=== PATIENT | male | born 1975 | race Two or more races ===

== ENCOUNTER 2019-11-07 15:33 | Emergency (ER) | payer BC ==
[~2019-11-07] VITALS: Ht 170.2 cm; Wt 81.8 kg
[2019-11-07 16:00] VITALS: BP 141/84
[2019-11-07] MEDS ORDERED: LIDOCAINE 1% PF 2 ML VIAL. INJ ONE (16:15)
[2019-11-07] MEDS ORDERED: DIPH,PERTUSS(ACELL),TET VAC/PF 0.5 ML SYRINGE. VAX IM ONE (16:15)
--- NOTE | 2019-11-07 16:21 | PHYS DOC ---
Past Medical History Past Medical History: No Pertinent History Past Surgical History: No Surgical History Smoking Status: Current Every Day Smoker Alcohol Use: None General Adult EDM: Chief Complaint: LACERATION/AVULSION HPI: HPI: Patient is a 44 year old male, accompanied by his significant other who is translating for him, that resents with an avulsion/laceration to distal left third finger. Patient reports that he was cutting some wood today when he cut the tip of his left third finger with the saw. He denies any decreased sensation, or movement to the affected extremity. Patient is dominantly right- handed. He currently rates his pain 9 out of 10. There is no radiation of pain, nothing makes pain better or worse. Patient is unsure when his last tetanus shot was. Review of Systems: Review of Systems: Complete review of systems is negative unless otherwise documented in the HPI Heart Score: Risk Factors: Risk Factors: DM, Current or recent (<one month) smoker, HTN, HLP, family history of CAD, obesity. Risk Scores: Score 0 - 3: 2.5% MACE over next 6 weeks - Discharge Home Score 4 - 6: 20.3% MACE over next 6 weeks - Admit for Clinical Observation Score 7 - 10: 72.7% MACE over next 6 weeks - Early Invasive Strategies Allergies: Allergies: Allergies Coded Allergies Type Severity Reaction Last Updated Verified No Known Drug Allergies 11/07/19 No Physical Exam: PE: Constitutional: Well developed, well nourished, no acute distress, non-toxic appearance. [] HENT: Normocephalic, atraumatic, bilateral external ears normal, nose normal. [] Eyes: PERRLA, EOMI, conjunctiva normal, no discharge. [] Neck: Normal range of motion, no stridor. [] Cardiovascular:Heart rate regular rhythm, no murmur [] Lungs & Thorax: Respirations even and unlabored, no retractions, no respiratory distress] Skin: Warm, dry, no erythema, no rash; patient has avulsion/laceration to tip of left third finger, no visible foreign body, no active bleeding Extremities: L index finger: no cyanosis, no clubbing, no edema, PMS intact, cap refill less than 2 seconds Neurologic: Alert and oriented X 3, normal motor function, normal sensory function, no focal deficits noted. [] Psychologic: Affect normal, judgement normal, mood normal. [] Current Patient Data: Labs: Complete ROS is negative unless otherwise noted in HPI. Vital Signs: Vital Signs Date Time Temp Pulse Resp B/P (MAP) Pulse Ox O2 Delivery O2 Flow Rate FiO2 11/07/19 16:00 98.1 76 16 141/84 (103) 98 Room Air 98.1 EKG: EKG: [] Radiology/Procedures: Radiology/Procedures: PROCEDURE: FINGER(S) LEFT Left third finger x-rays 3 views HISTORY: Left middle finger laceration with a subtle. FINDINGS: Second MCP joint demonstrates a small particular soft tissue density may be a chronic foreign body. There is a laceration soft tissue defect at the tip of the distal third finger and a small cortical fracture defect of the third distal phalangeal tuft, no radiopaque foreign body at the third finger laceration. No dislocation. IMPRESSION: Laceration of the third distal finger and acute traumatic mild cortical impaction fracture of the third distal phalangeal tuft. See above. Laceration Repair by me: Anesthesia: 1% lidocaine locally Location: Distal left middle finger Tendon/Joint/Nerves: No injury Foreign body: None detected after copious irrigation and exploration with NS and chlorhexidine Technique: 3 Simple Interrupted Sutures with 4-0 Ethilon Complexity: No subcutaneous sutures/mucosal repair/edge excision Post Closure Length: 1.5 cm Patient's bleeding was easily controlled in the department and there is no indic ation of anemia. No evidence of compartment syndrome, neurologic injury, vascular injury, tendon laceration, or foreign body. Patient is appropriate for outpatient follow up. 48 hour wound check. [] Course & Med Decision Making: Course & Med Decision Making Pertinent Labs and Imaging studies reviewed. (See chart for details) 4-year-old male comes in with laceration to left third finger after cutting it on a saw while cutting wood. Patient is unknown when his last tetanus was, will update today. Will obtain x-ray of left third finger. [] Dragon Disclaimer: Marco Disclaimer: This electronic medical record was generated, in whole or in part, using a voice recognition dictation system. Departure Departure Impression: Primary Impression: Open fracture of distal phalangeal tuft with malunion Additional Impression: Need for Tdap vaccination Disposition: 01 HOME, SELF-CARE Condition: STABLE Referrals: NO PCP (PCP) RAYMOND PEREIRA MD Patient Instructions: Finger Fracture, [id number], Fingertip Injuries and Amputations Additional Instructions: Fill the prescriptions and use them as directed. Wear the splint and dressing was placed in the emergency department until you are evaluated by orthopedics. Call Dr. Pereira's office in the morning to schedule follow-up. Return to the ER if symptoms worsen or you develop a fever. Scripts Hydrocodone Bit/Acetaminophen (HYDROCODONE-APAP 5-325 ) 1 Tab Tablet 1 TAB PO PRN Q6HRS PRN for PAIN for 3 Days, #12 TAB 0 Refills Prov: SJ BALL APRN 11/07/19 Amoxicillin/Potassium Clav (AUGMENTIN 875-125 TABLET) 1 Each Tablet 1 TAB PO BID for 10 Days, #20 TAB 0 Refills Prov: SJ BALL APRN 11/07/19 Justicifation of Admission Dx: Justifications for Admission: Justification of Admission Dx: N/A Splinting Splinting : Location: Left index finger Pre-Made Type: metal (Aluminum finger splint) Pre-Proc Neuro Vasc Exam: normal Post-Proc Neuro Vasc Exam: normal, unchanged from pre-exam Progress An aluminum finger splint was applied to the left middle finger and then was dayo taped to the left index finger. Patient tolerated procedure well, neurovascularly intact after the procedure. SJ BALL APRN Nov 07, 2019 16:21
--- NOTE | 2019-11-07 17:09 | RAD ---
Left third finger x-rays 3 views HISTORY: Left middle finger laceration with a subtle. FINDINGS: Second MCP joint demonstrates a small particular soft tissue density may be a chronic foreign body. There is a laceration soft tissue defect at the tip of the distal third finger and a small cortical fracture defect of the third distal phalangeal tuft, no radiopaque foreign body at the third finger laceration. No dislocation. IMPRESSION: Laceration of the third distal finger and acute traumatic mild cortical impaction fracture of the third distal phalangeal tuft. See above. Electronically signed by: Priyank Gentile MD (11/07/2019 5:06 PM) [facility]
[2019-11-07] MEDS ORDERED: AMOX1TAB61 PO (18:49)
[2019-11-07] MEDS ORDERED: HYDR-2761 PO (18:49)
== END 2019-11-07 19:03 | disposition home or self-care (01) ==
LOC: ER 15:33
DX: S62.633 Displaced fracture of distal phalanx of left middle finger (principal); F17.200 Nicotine dependence, unspecified, uncomplicated; W27.0XXA Contact with workbench tool, initial encounter; Y93.89 Activity, other specified; Y92.89 Other specified places as the place of occurrence of the external cause; Y99.8 Other external cause status
CPT/HCPCS: 29130; 73140; 90471; 90715; 99283; J3490